=== PATIENT | female | born 2005 | race Two or more races ===

== ENCOUNTER 2025-03-30 19:41 | Emergency (ER) | payer MEDICAID, SELFPAY ==
[2025-03-30 19:42] VITALS: BMI 42.9
[2025-03-30 20:59] VITALS: BP 129/88; PULSE 96; RESP 18; TEMP 36.9; O2SAT 98
--- NOTE | 2025-03-30 21:10 | PD.EDABDPN ---
ED Abdominal Pain RME/HPI General Chief Complaint: Abdominal Pain Stated complaint: abd pain Time seen by provider: 03/30/25 20:54 Arrival date/time: 03/30/25 19:41 RME / HPI RME / HPI narrative: 20-year-old female presents to the ED with a 1 week complaint of lower pelvic pain. She said it occasionally radiates to her low back. Her last menstrual period was on 02/14/25. She said it is typical for her to be late on her menstrual cycle. She has noticed an orange to red color to her urine. She denies any dysuria or frequency. Related Data Previous Rx's ?Medication ?Instructions ?Recorded prednisone 50 mg tablet 50 mg PO QDAY #5 tabs 06/29/24 epinephrine 0.3 mg/0.3 mL 0.3 ml subcut .x1 #2 ea 08/09/24 injection, auto-injector (EpiPen 2-Mark) famotidine 40 mg tablet (Pepcid) 40 mg PO QDAY #30 tabs 08/09/24 meloxicam 7.5 mg tablet 7.5 mg PO QDAY #10 tabs 03/31/25 sulfamethoxazole 800 1 tab PO BID #10 tabs 03/31/25 mg-trimethoprim 160 mg tablet (Bactrim DS) Allergies Allergy/AdvReac Type Severity Reaction Status Date / Time No Known Allergies Allergy Verified 03/30/25 19:48 Course Orders Category Date Time Status NPO STAT Care 03/30/25 21:12 Active US pelvic complete Stat Exams 03/30/25 21:12 Completed Amylase Stat Lab 03/30/25 21:29 Completed CBC Stat Lab 03/30/25 21:29 Completed Comprehensive Metabolic Panel Stat Lab 03/30/25 21:29 Completed HCG Qualitative,Urine Stat Lab 03/30/25 21:46 Completed Lipase Stat Lab 03/30/25 21:29 Completed Urinalysis Stat Lab 03/30/25 21:46 Completed Urine Culture Stat Lab 03/30/25 21:13 Received Ketorolac Inj [Toradol Inj] Med 03/31/25 00:53 Once 30 mg IM X1 ONE Vital Signs Vital signs: Vital Signs Temperature 98.4 F 03/30/25 20:59 Pulse Rate 96 03/30/25 20:59 Respiratory Rate 18 03/30/25 20:59 Blood Pressure 129/88 H 03/30/25 20:59 Pulse Oximetry (%) 98 03/30/25 20:59 Oxygen Delivery Method Room Air 03/30/25 20:59 Discharge Plan Plan Patient Disposition: HOME (Self Care) Discharge Disposition comment: Stable Prescriptions/Referrals Prescriptions/Med Rec: New meloxicam 7.5 mg tablet 7.5 mg PO QDAY Qty: 10 0RF sulfamethoxazole-trimethoprim [Bactrim DS] 800-160 mg tablet 1 tab PO BID Qty: 10 0RF No Action prednisone 50 mg tablet 50 mg PO QDAY Qty: 5 0RF famotidine [Pepcid] 40 mg tablet 40 mg PO QDAY Qty: 30 0RF epinephrine [EpiPen 2-Mark] 0.3 mg/0.3 mL auto-injector 0.3 ml subcut .x1 Qty: 2 0RF Referrals: Stephanie Moreno [Primary Care Provider] - In 1 week Problem List Clinical Impression: Ovarian cyst, Urinary tract infection, Elevated liver enzymes Patient/Caregiver Discharge Instructions Education Materials: ED Ovarian Cyst, ED CYSTITIS Female Adult Additional Instructions: Take the antibiotics as prescribed and complete the course even though you may be feeling better. Follow-up with your primary care physician in 24 to 48 hours. Return to the ED for any new or worsening symptoms. Print Language: Liberian Stand Alone Forms: Jana Award Info., Patient Portal Info Letter PA/[employer]PAREL MACHINERY INSTRUCTOR Supervising Physician PA/[employer]PAREL MACHINERY INSTRUCTOR Supervising Physician: Dr. Escalante
--- NOTE | 2025-03-30 21:12 | XR_ITS ---
Examination: Pelvic ultrasound, transabdominal, complete Technique: Transabdominal ultrasound of the pelvis performed using grayscale imaging Date and time of exam: March 30, 2000 2510 0 7:00 PM INDICATIONS: Onset of pelvic pain beginning one week ago FINDINGS: Uterus 6.4 cm endometrial stripe 0.6 cm No uterine mass or intrauterine gestation Right ovary 3.8 cm arterial flow Left ovary 4.3 cm arterial flow 2.8 x 2.1 x 2.0 cm simple cyst IMPRESSION: Left ovarian simple cyst 2.8 x 2.1 x 2.0 cm
[2025-03-30 21:38] LABS: Basophils # (Auto) 0.1 Thou/mm3 (0.0-0.2); Basophils % (Auto) 0 % (0-2.5); Eosinophils # (Auto) 0.2 Thou/mm3 (0.0-0.5); Eosinophils % (Auto) 1 % (0-10); Hematocrit 44.8 % (36.0-46.0); Immature Granulocytes % (Auto) 0 % (0-0); Immature Granulocytes Auto 0.05 Thou/mm3 (0.00-0.00); Lymphocytes # (Auto) 3.7 Thou/mm3 (1.0-4.8); Lymphocytes % (Auto) 27 % (10-50); Mean Corpuscular HGB Conc 33.5 g/dl (31.0-37.0); Mean Corpuscular Hemoglobin 30.4 pg (25.0-35.0); Mean Corpuscular Volume 91 fL (80-100); Monocytes # (Auto) 0.9 Thou/mm3 (0.0-0.8); Monocytes % (Auto) 6 % (0-12); Neutrophils # (Auto) 9.1 Thou/mm3 (1.8-7.7); Neutrophils % (Auto) 65 % (37-80); Nucleated Red Blood Cell % 0 /100 WBC (0); Platelet Count 337 Thou/mm3 (140-440); RDW Standard Deviation 42.6 fL (36.4-46.3); Red Blood Count 4.93 Miln/mm3 (4.00-5.20)
[2025-03-30 21:50] LABS: Collection Type, Urine Clean Catch
[2025-03-30 21:55] LABS: Alanine Aminotransferase 165 U/L (10-49); Albumin, Serum 4.4 gm/dL (3.5-5.0); Albumin/Globulin Ratio 1.5 (1.2-2.2); Alkaline Phosphatase 166 U/L (46-116); Amylase 63 U/L (30-118); Anion Gap 10 (7-16); Aspartate Amino Transferase 103 U/L (0-34); BUN/Creatinine Ratio 11 Ratio (12-20); Bilirubin,Total 0.8 mg/dL (0.3-1.2); Blood Urea Nitrogen 10 mg/dL (9-23); Calcium 9.1 mg/dL (8.3-10.6); Calcium (Corrected) 9.1 mg/dL (8.5-10.1); Carbon Dioxide 29.1 mMol/L (20.0-31.0); Chloride 102 mMol/L (98-107); Creatinine (Component) 0.9 mg/dL (0.6-1.3); Globulin 2.9 gm/dL (2.3-3.5); Glucose 92 mg/dL (74-106); Lipase 30 U/L (12-53); Osmolality,Calculated 280 (275-295); Potassium 4.1 mMol/L (3.4-5.1); Sodium 141 mMol/L (136-145); Total Protein 7.3 gm/dL (5.7-8.2); eGFR > 60 See Note
[2025-03-30 22:05] LABS: Bacteria,Urine 1+; Bilirubin,Urine Negative (Negative); Blood,Urine Negative (Negative); Clarity,Urine Turbid (Clear/Hazy); Color,Urine Yellow (Lt Yel-Yel); Glucose, Urine Negative (Negative); Hyaline Casts,Urine < 1 /hpf (0-1); Ketones,Urine Negative (Negative); Leukocyte Esterase,Urine Positive (Negative); Nitrite,Urine Negative (Negative); Protein,Urine Trace (Neg - Trace); RBC,Urine 22 /hpf (0-3); Specific Gravity,Urine 1.018 (1.001-1.035); Squamous Epithelial Cell,Urine 42 /hpf (0-5); Urobilinogen,Urine Negative mg/dL (0.0-1.0); WBC,Urine 16 /hpf (0-5)
[2025-03-30 22:09] LABS: HCG Qualitative,Urine Negative
[2025-03-31] MEDS: KETOROLAC INJ 60 MG/2 ML VIAL 30 MG IM (01:18)
== END 2025-03-31 01:25 | disposition home or self-care (01) ==
PROVIDERS: Physician Assistant; Emergency Provider Emergency Medicine; PCP Physician Assistant
DX: N83.292 Other ovarian cyst, left side (principal); N39.0 Urinary tract infection, site not specified
CPT/HCPCS: 36415; 76856; 80053; 81001; 81025; 82150; 83690; 85025; 87077; 87086; 87186; 96372; 99284; J1885